=== PATIENT | male | born 1980 ===

== ENCOUNTER → 2018-10-01 | Outpatient (CLI) | payer BC ==
--- NOTE | 2018-10-01 17:22 | CONS ---
CONSULTATION REASON FOR CONSULTATION: Consultation for sleep apnea. A 37-year-old male patient, works for [employer]. Lives in [place] and works in [employer]. The patient lives close to his work environment during the weekdays and he gets back home on weekends. He has been diagnosed having obstructive sleep apnea many years back through a sleep study that was done in [place]. Specifically the sleep study was done in 2011. I do not have any documentation as far as the diagnosis or severity. The patient was given CPAP which he uses for short periods of time and then after he ran out of his supplies, he quit the treatment. He has maintained his own body weight. He is feeling a bit tired and sleepy and he is snoring and he quits breathing at night and he wakes up gasping for air and this occurs approximately once a week. He goes to bed around 9:30 pm, wakes up at 5:30 a.m. in the morning. 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 He claims that he is wide awake and alert. Has never been involved in a motor vehicle accident because of feeling drowsy or sleepy. Vanzant score is at 15. No history of insomnia. No nocturia. No grinding of the teeth. No restlessness in lower extremities. He was referred to me for a reevaluation. 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 PAST MEDICAL HISTORY: 1. Obstructive sleep apnea diagnosed back in 2011. Currently not receiving any treatment. 2. Hypertension. PAST SURGICAL HISTORY: Negative. DRUG ALLERGIES: Not known. OUTPATIENT MEDICATIONS ARE: Lisinopril. SOCIAL HISTORY: Nonsmoker. No history of alcohol. No history of IV drugs. FAMILY HISTORY: Mother is healthy. Father has hypertension. REVIEW OF SYSTEMS: 12-point review of system was done. Positive findings are mentioned in history of present illness. Weight has been stable. No sleep paralysis. No hallucinations. No cataplexy. No reported substance abuse. He drinks 2 cups of coffee during the day. No history of alcoholism. No history of any sudden episodes of muscle weakness or sleep paralysis. No anxiety. No claustrophobia. No depression. No irritability. He does not wake up with a dry mouth. No palpitation. No heartburn. No sweating. No sleep talking or sleep walking. No restlessness in his lower extremities. No nighttime shortness of breath chest pain. No heartburn. PHYSICAL EXAMINATION: BP is 112/69, pulse 90, respirations 16, temperature 97.8. Saturation 96% on room air. Height is 5 feet 11 inches, weight is 250, BMI is 34.8, neck size is 17 and half. Vanzant score of 15. GENERAL APPEARANCE: Calm and comfortable. Head is atraumatic, normocephalic. NECK: Supple. There is no JVD. No goiter or neck masses. Patient has bilateral tonsillar enlargement almost kissing tonsils. LUNGS: Clear to auscultation. HEART: Sounds regular rate and rhythm. Normal S1, S2. No S3, no murmurs. ABDOMEN: Soft, nontender. No organomegaly. EXTREMITIES: No edema. No cyanosis or clubbing. Neurological: Awake and alert x3. There is no focal neurological deficits. PSYCHIATRIC: Negative for anxiety or depression. IMPRESSION: 1. Obstructive sleep apnea. Diagnosis established back in 2011 and the patient has been off treatment. The patient is coming in for reevaluation. 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 He does have some increased tiredness and sleepiness. His Vanzant score of 15. 2. Hypersomnia/fatigue, Vanzant score of 15. 3. Bilateral tonsillar enlargement. 4. Obesity with a BMI of 34.8. 5. History of hypertension. PLAN: 1. Encourage weight loss. 2. The patient will have re-investigation for obstructive sleep apnea. We will set up the patient for a home sleep study to assess the presence and severity of sleep apnea and decide on treatment accordingly. He has an older generation CPAP unit at home which he will bring during his next visit. We will assess our ability to use his old machine if the diagnosis of sleep apnea is confirmed. 3. Implement good sleep hygiene measures. 4. We will continue to follow. MMODL / IJN: [id number] /
== END ==
LOC: SLEEP 14:43
PROVIDERS: ATTEND Internal Medicine Critical Care Medicine
DX: G47.33 Obstructive sleep apnea (adult) (pediatric) (principal); I10 Essential (primary) hypertension; Z79.899 Other long term (current) drug therapy; E66.9 Obesity, unspecified; J35.1 Hypertrophy of tonsils; Z68.34 Body mass index [BMI] 34.0-34.9, adult; Z99.89 Dependence on other enabling machines and devices
CPT/HCPCS: 99211

== ENCOUNTER → 2018-12-17 | Outpatient (CLI) | payer BC ==
--- NOTE | 2018-12-17 20:14 | PN ---
PROGRESS NOTE Silvestre is 37 with a diagnosis of severe obstructive sleep apnea, AHI of 41, worse in a supine body position. The patient was offered an APAP. On today's evaluation, the patient is coming in for a compliancy check. He is very happy and extremely content with his CPAP response. He has been wearing his CPAP every night. Over the past one week he was on a job in [place], [place], and he forgot to take his machine with him; as such, his numbers are slightly off. Yet overall compliance data show that the patient has been averaging around 5.8 hours of CPAP use per night and his AHI while on treatment is down to 1.8. His average CPAP pressure is 13.8, while being in a minimum pressure of 5, maximum pressure of 20. He is using the F20 medium-sized full-face mask. He is happy with the current mask and is looking for alternatives. His Leburn score is currently down to 8. He feels great. No hypersomnia or sleepiness. He is able to drive long distances without having to fall asleep. REVIEW OF SYSTEMS: Fourteen-point review of systems was done. Positive findings are mentioned above in the history of present illness. No major hypersomnia or sleepiness on today's evaluation. PHYSICAL EXAMINATION: BP is 137/75, pulse 76, respirations 16, temperature 98.2. Weight is 247, saturation 96% on room air. GENERAL APPEARANCE: Calm, comfortable. Head is atraumatic, normocephalic. NECK: Supple. There is no JVD. No goiter or neck masses. LUNGS: Diminished; otherwise clear. HEART: Heart sounds are regular rate and rhythm. Normal S1, S2. No S3, S4. No murmurs. ABDOMEN: Soft, nontender. No organomegaly. EXTREMITIES: No edema. No cyanosis or clubbing. NEUROLOGIC: Alert and oriented x3. No focal neurological deficits. PSYCHIATRIC: Negative for anxiety or depression. Skin is negative for any wounds or ulceration. IMPRESSION: 1. Severe obstructive sleep apnea, apnea/hypopnea index of 41.9, worse in the supine body position. The patient is successfully treated. The patient is currently on APAP. 2. Hypersomnia, improved. Leburn score is down to 8. 3. Obesity. 4. Bilateral tonsillar enlargement. 5. Hypertension. PLAN: The patient has responded very nicely to APAP. He will continue APAP at the same setting. I offered the patient a DreamWear medium-sized [id number] full-face mask. This will be used as an alternative mask for the AirFit F20 medium-sized full-face mask. Encourage weight loss. His treatment has been successful. Compliance data was checked. The patient is meeting insurance guidelines. No issues for now. See me back in a year's time in followup, earlier if needed. MMODL / IJN: [id number] /
== END ==
LOC: SLEEP 16:26
PROVIDERS: ATTEND Internal Medicine Critical Care Medicine
DX: G47.33 Obstructive sleep apnea (adult) (pediatric) (principal); E66.9 Obesity, unspecified; I10 Essential (primary) hypertension; J35.1 Hypertrophy of tonsils; Z99.89 Dependence on other enabling machines and devices

== ENCOUNTER → 2020-10-26 | Outpatient (CLI) | payer BC ==
--- NOTE | 2020-10-26 14:49 | PN ---
PROGRESS NOTE Silvestre is coming in for a followup regarding his obstructive sleep apnea. He is currently 39. He is known to have severe SARAH with an AHI of 41 and currently is on APAP 5 and 20 cm of water. 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 Meanwhile, he is to improve his compliancy slightly. At times he is taking off his mask and is not wearing his CPAP machine. Based on a 30- day compliance, the patient has worn his machine 19 out of 30 days, and has achieved around more than 4 hours, 16 out of these 30 days. He is averaging around 5.9 hours on those days that he wears his CPAP. His average pressure delivered by the machine is 15.1. Leak is in order of 24 L/minutes. His AHI while on treatment is down to 1.4. His weight is up during the COVID times and he is up to 261 pounds. No hypersomnia or sleepiness when he wears his machine. He is using an AirFit F20 medium-sized full-face mask. No aerophagia. No major hypersomnia or sleepiness while on the treatment. No angina. No palpitations. No atrial fibrillation. No stroke. No other issues for now. He is not an alcohol drinker. REVIEW OF SYSTEMS: Fourteen-point review of system was done. Positive findings are positive for weight gain. Otherwise negative. His current Lakeside score is at 6. PHYSICAL EXAMINATION: VITAL SIGNS: BP is 140/82, pulse 80, respirations 16, temperature 96.7, weight is 261. Lakeside score is 6. Saturation 97% on room air. GENERAL APPEARANCE: Calm, comfortable. HEAD: Atraumatic, normocephalic. NECK: Supple. There is no JVD. No goiter or neck masses. LUNGS: Clear to auscultation. HEART: Heart sounds are regular rate and rhythm. Normal S1, S2. No S3, S4. No murmurs. ABDOMEN: Soft, nontender. No organomegaly. EXTREMITIES: No edema. No cyanosis or clubbing. NEUROLOGIC: Awake, alert, and there is no focal neurological deficits. PSYCHIATRIC: Negative for anxiety or depression. IMPRESSION: 1. Severe obstructive sleep apnea with an AHI of 42, currently on APAP with successful treatment. Compliance needs to be better however. 2. Hypersomnia, improved. Lakeside score is down to 6. 3. Obesity. 4. Bilateral tonsillar enlargement. 5. Hypertension. 6. Interval weight gain probably in the order of 14 pounds. PLAN: 1. Improve compliancy. 2. I offered the patient a crossvertiseWear medium-size full face mask which he liked. This is a full-face mask under the nose and the mask fit was improved and the patient was given another sample. He is using this in alternation with the AirFit F20 full- face mask. He needs to improve the number of hours of CPAP use and he needs to wear it every night. Encourage weight loss and see me back in a few years time in followup. Refills were given. We will continue to follow. MMODL / IJN: [id number] /
== END ==
LOC: SLEEP 13:16
PROVIDERS: ATTEND Internal Medicine Critical Care Medicine
DX: G47.33 Obstructive sleep apnea (adult) (pediatric) (principal); Z99.89 Dependence on other enabling machines and devices; E66.9 Obesity, unspecified; I10 Essential (primary) hypertension; J35.1 Hypertrophy of tonsils

== ENCOUNTER 2023-05-13 16:05 | Emergency (ER) | payer BC ==
[2023-05-13 16:18] VITALS: RESP 18
[2023-05-13] MEDS ORDERED: SODIUM CHLORIDE 0.9% 1,000 ML IV STA (16:31)
[2023-05-13] MEDS ORDERED: KETOROLAC 15 MG/ML 1 ML VIAL IVP STA (16:31)
--- NOTE | 2023-05-13 16:57 | ED ---
Abdominal Pain HPI - General Chief Complaint: Abdominal Pain Stated Complaint: lower abd pain Time Seen by Provider: 05/13/23 16:19 Source: patient Mode of arrival: ambulatory Limitations: no limitations - History of Present Illness Initial Comments: 6-year-old male presenting with chief complaint of left lower quadrant pain. Pain has been there for the last 3 days. Feels a cramping sensation. He admits to constipation. No diarrhea, hematochezia, melena. No fevers or chills. No nausea or vomiting. No dysuria, hematuria, flank pain. - Related Data Previous Rx's Medication Instructions Recorded Amoxic-Pot Clav 875-125Mg 1 tab PO Q12HR 10 Days #20 tab 05/13/23 [Augmentin 875-125] Allergies Allergy/AdvReac Type Severity Reaction Status Date / Time No Known Allergies Allergy Verified 05/13/23 16:17 Review of Systems ROS Statement: Those systems with pertinent positive or pertinent negative responses have been documented in the HPI. ROS Other: All systems not noted in ROS Statement are negative. Past Medical History Past Medical History: No Reported History History of Any Multi-Drug Resistant Organisms: None Reported Past Surgical History: Hernia Repair Past Psychological History: No Psychological Hx Reported Smoking Status: Light tobacco smoker Past Alcohol Use History: None Reported Past Drug Use History: Marijuana General Exam Limitations: no limitations General appearance: alert, in no apparent distress Head exam: Present: atraumatic, normocephalic, normal inspection Eye exam: Present: normal appearance, EOMI Neck exam: Present: normal inspection, full ROM Respiratory exam: Present: normal lung sounds bilaterally. Absent: respiratory distress, wheezes, rales, rhonchi, stridor Cardiovascular Exam: Present: regular rate, normal rhythm, normal heart sounds. Absent: systolic murmur, diastolic murmur, rubs, gallop, clicks GI/Abdominal exam: Present: soft, tenderness (LLQ), guarding. Absent: distended, rebound, rigid Neurological exam: Present: alert, oriented X3 Psychiatric exam: Present: normal affect, normal mood Skin exam: Present: warm, dry, intact, normal color. Absent: rash Course Vital Signs 05/13/23 05/13/23 16:13 19:30 Temperature 98.0 F 98.8 F Pulse Rate 91 76 Respiratory 18 18 Rate Blood Pressure 132/84 133/84 O2 Sat by Pulse 97 97 Oximetry Medical Decision Making - Medical Decision Making Was pt. sent in by a medical professional or institution (LATASHA Martin, SHAKER REPAIRER, urgent care, hospital, or long-term...) When possible be specific @ -No Did you speak to anyone other than the patient for history (EMS, parent, family, police, friend...)? What history was obtained from this source @ -No Did you review nursing and triage notes (agree or disagree)? Why? @ -I reviewed and agree with nursing and triage notes Were old charts reviewed (outside hosp., previous admission, EMS record, old EKG, old radiological studies, urgent care reports/EKG's, long-term records)? Report findings @ -No old charts were reviewed Differential Diagnosis (chest pain, altered mental status, abdominal pain women, abdominal pain men, vaginal bleeding, weakness, fever, dyspnea, syncope, headache, dizziness, GI bleed, back pain, seizure, CVA, palpatations, mental health, musculoskeletal)? @ -MDM Differential Abdominal Pain Men: Appendicitis, cholecystitis, diverticulosis, ischemic bowel, pancreatitis, hepatitis, UTI, gastroenteritis, AAA, incarcerated hernia, bowel obstruction, constipation, inflammatory bowel, hepatitis, peptic ulcer disease, splenic infa rction, perforated viscus, testicular torsion... This is not meant to be an all- inclusive list EKG interpreted by me (3pts min.). @ -As above X-rays interpreted by me (1pt min.). @ -None done CT interpreted by me (1pt min.). @ -Acute uncomplicated descending colon/sigmoid colon diverticulitis U/S interpreted by me (1pt. min.). @ -None done What testing was considered but not performed or refused? (CT, X-rays, U/S, labs)? Why? @ -None What meds were considered but not given or refused? Why? @ -None Did you discuss the management of the patient with other professionals (professionals i.e. LATASHA Martin, SHAKER REPAIRER, lab, RT, psych nurse, family welfare social work professor, sales support assistant, te acher, legal compliance officer, patient case coordinator)? Give summary @ -No Was smoking cessation discussed for >3mins.? @ -No Was critical care preformed (if so, how long)? @ -No Were there social determinants of health that impacted care today? How? (Homelessness, low income, unemployed, alcoholism, drug addiction, transportation, low edu. Level, literacy, decrease access to med. care, half-way, rehab)? @ -No Was there de-escalation of care discussed even if they declined (Discuss DNR or withdrawal of care, Hospice)? DNR status @ -No What co-morbidities impacted this encounter? (DM, HTN, Smoking, COPD, CAD, Cancer, CVA, ARF, Chemo, Hep., AIDS, mental health diagnosis, sleep apnea, morbid obesity)? @ -None Was patient admitted / discharged? Hospital course, mention meds given and rou te, prescriptions, significant lab abnormalities, going to OR and other pertinent info. @ -42-year-old male presenting with chief complaint of left lower quadrant pain present since Sunday. Admits to constipation. On physical exam there is tenderness with guarding in the left lower quadrant. WBC 11.5. CT is positive for diverticulitis. Patient will be treated with Augmentin. Follow-up with PCP. Report back to ER with any new or worsening symptoms. Discussed return parameters and answered all questions. Patient conveyed verbal understanding and agreed to the plan. I discussed this case in detail with my attending Dr. Kramer Undiagnosed new problem with uncertain prognosis? @ -No Drug Therapy requiring intensive monitoring for toxicity (Heparin, Nitro, Insulin, Cardizem)? @ -No Were any procedures done? @ -No Diagnosis/symptom? @ -Diverticulitis Acute, or Chronic, or Acute on Chronic? @ -Acute Uncomplicated (without systemic symptoms) or Complicated (systemic symptoms)? @ -Uncomplicated Side effects of treatment? @ -No Exacerbation, Progression, or Severe Exacerbation? @ -No Poses a threat to life or bodily function? How? (Chest pain, USA, MO, pneumonia, PE, COPD, DKA, ARF, appy, cholecystitis, CVA, Diverticulitis, Homicidal, Suicidal, threat to staff... and all critical care pts) @ -Low likelihood - Lab Data Result diagrams: 05/13/23 16:40 05/13/23 16:40 Lab Results 05/13/23 05/13/23 05/13/23 Range/Units 16:40 16:40 16:40 WBC 11.5 H (3.8-10.6) k/uL RBC 5.08 (4.30-5.90) m/uL Hgb 15.7 (13.0-17.5) gm/dL Hct 45.0 (39.0-53.0) % MCV 88.6 (80.0-100.0) fL MCH 30.9 (25.0-35.0) pg MCHC 34.9 (31.0-37.0) g/dL RDW 12.2 (11.5-15.5) % Plt Count 229 (150-450) k/uL MPV 8.2 Neutrophils % 76 % Lymphocytes % 17 % Monocytes % 5 % Eosinophils % 1 % Basophils % 0 % Neutrophils # 8.7 H (1.3-7.7) k/uL Lymphocytes # 1.9 (1.0-4.8) k/uL Monocytes # 0.6 (0-1.0) k/uL Eosinophils # 0.1 (0-0.7) k/uL Basophils # 0.0 (0-0.2) k/uL Sodium 135 L (137-145) mmol/L Potassium 4.0 (3.5-5.1) mmol/L Chloride 100 (98-107) mmol/L Carbon Dioxide 23 (22-30) mmol/L Anion Gap 12 mmol/L BUN 21 H (9-20) mg/dL Creatinine 0.72 (0.66-1.25) mg/dL Est GFR (CKD-EPI)AfAm >90 (>60 ml/min/1.73 sqM) Est GFR (CKD-EPI)NonAf >90 (>60 ml/min/1.73 sqM) Glucose 92 (74-99) mg/dL Plasma Lactic Acid Prabhakar (0.7-2.0) mmol/L Calcium 9.3 (8.4-10.2) mg/dL Total Bilirubin 1.2 (0.2-1.3) mg/dL AST 24 (17-59) U/L ALT 45 (4-49) U/L Alkaline Phosphatase 62 (38-126) U/L Total Protein 7.6 (6.3-8.2) g/dL Albumin 4.4 (3.5-5.0) g/dL Amylase 105 (30-110) U/L Lipase 224 (23-300) U/L Urine Color Yellow Urine Appearance Clear (Clear) Urine pH 6.0 (5.0-8.0) Ur Specific [place] 1.029 (1.001-1.035) Urine Protein Trace H (Negative) Urine Glucose (UA) Negative (Negative) Urine Ketones Trace H (Negative) Urine Blood Negative (Negative) Urine Nitrite Negative (Negative) Urine Bilirubin 1+ H (Negative) Urine Urobilinogen 8.0 (<2.0) mg/dL Ur Leukocyte Esterase Negative (Negative) 05/13/23 Range/Units 16:40 WBC (3.8-10.6) k/uL RBC (4.30-5.90) m/uL Hgb (13.0-17.5) gm/dL Hct (39.0-53.0) % MCV (80.0-100.0) fL MCH (25.0-35.0) pg MCHC (31.0-37.0) g/dL RDW (11.5-15.5) % Plt Count (150-450) k/uL MPV Neutrophils % % Lymphocytes % % Monocytes % % Eosinophils % % Basophils % % Neutrophils # (1.3-7.7) k/uL Lymphocytes # (1.0-4.8) k/uL Monocytes # (0-1.0) k/uL Eosinophils # (0-0.7) k/uL Basophils # (0-0.2) k/uL Sodium (137-145) mmol/L Potassium (3.5-5.1) mmol/L Chloride (98-107) mmol/L Carbon Dioxide (22-30) mmol/L Anion Gap mmol/L BUN (9-20) mg/dL Creatinine (0.66-1.25) mg/dL Est GFR (CKD-EPI)AfAm (>60 ml/min/1.73 sqM) Est GFR (CKD-EPI)NonAf (>60 ml/min/1.73 sqM) Glucose (74-99) mg/dL Plasma Lactic Acid Prabhakar 0.8 (0.7-2.0) mmol/L Calcium (8.4-10.2) mg/dL Total Bilirubin (0.2-1.3) mg/dL AST (17-59) U/L ALT (4-49) U/L Alkaline Phosphatase (38-126) U/L Total Protein (6.3-8.2) g/dL Albumin (3.5-5.0) g/dL Amylase (30-110) U/L Lipase (23-300) U/L Urine Color Urine Appearance (Clear) Urine pH (5.0-8.0) Ur Specific [place] (1.001-1.035) Urine Protein (Negative) Urine Glucose (UA) (Negative) Urine Ketones (Negative) Urine Blood (Negative) Urine Nitrite (Negative) Urine Bilirubin (Negative) Urine Urobilinogen (<2.0) mg/dL Ur Leukocyte Esterase (Negative) Disposition Clinical Impression: Diverticulitis Disposition: HOME SELF-CARE Condition: Good Instructions (If sedation given, give patient instructions): Diverticulitis (ED), Diverticulitis Diet (ED) Additional Instructions: Follow-up with PCP. Report back to ER with any new or worsening symptoms. Take medication as prescribed. Prescriptions: Amoxic-Pot Clav 875-125Mg [Augmentin 875-125] 1 tab PO Q12HR 10 Days #20 tab Is patient prescribed a controlled substance at d/c from ED?: No Referrals: None,Stated [Primary Care Provider] - 1-2 days Time of Disposition: 18:59
[2023-05-13 17:02] LABS: Appearance,Urine Clear (Clear); Basophils % (A) 0 %; Bilirubin,Urine 1+ (Negative); Blood,Urine Negative (Negative); Color,Urine Yellow; Eosinophils # (A) 0.1 k/uL (0-0.7); Eosinophils % (A) 1 %; Glucose,Urine (UA) Negative (Negative); HGB 15.7 gm/dL (13.0-17.5); Ketones,Urine Trace (Negative); Leukocyte Esterase,Urine Negative (Negative); Lymphocytes # (A) 1.9 k/uL (1.0-4.8); Lymphocytes % (A) 17 %; MCH 30.9 pg (25.0-35.0); MCHC 34.9 g/dL (31.0-37.0); MCV 88.6 fL (80.0-100.0); Mean Platelet Volume 8.2; Monocytes # (A) 0.6 k/uL (0-1.0); Monocytes % (A) 5 %; Neutrophils # (A) 8.7 k/uL (1.3-7.7); Neutrophils % (A) 76 %; Nitrite,Urine Negative (Negative); Platelet Count 229 k/uL (150-450); Protein,Urine Trace (Negative); RBC 5.08 m/uL (4.30-5.90); RDW 12.2 % (11.5-15.5); Specific Gravity,Urine 1.029 (1.001-1.035); WBC 11.5 k/uL (3.8-10.6)
[2023-05-13 17:13] LABS: ALT 45 U/L (4-49); AST 24 U/L (17-59); African American GFR (CKD) >90 (>60 ml/min/1.73 sqM); Albumin 4.4 g/dL (3.5-5.0); Alkaline Phosphatase 62 U/L (38-126); Amylase 105 U/L (30-110); Anion Gap 12 mmol/L; Blood Urea Nitrogen 21 mg/dL (9-20); Calcium 9.3 mg/dL (8.4-10.2); Carbon Dioxide 23 mmol/L (22-30); Chloride 100 mmol/L (98-107); Glucose 92 mg/dL (74-99); Lipase 224 U/L (23-300); Non-African American GFR(CKD) >90 (>60 ml/min/1.73 sqM); Sodium 135 mmol/L (137-145); Total Bilirubin 1.2 mg/dL (0.2-1.3); Total Protein 7.6 g/dL (6.3-8.2)
--- NOTE | 2023-05-13 18:28 | CT ---
EXAMINATION TYPE: CT abdomen pelvis w con CT DLP: 1456.7 mGycm, Automated exposure control for dose reduction was used. DATE OF EXAM: 05/13/2023 6:11 PM COMPARISON: None CLINICAL INDICATION:Male, 42 years old with history of LLQ abdominal pain; LLQ abdominal pain TECHNIQUE: Axial CT of the abdomen and pelvis. Sagittal and coronal reformats were created on a [employer] workstation. Contrast used:100 mL of Isovue 370 with IV Contrast, (none if empty) Oral contrast used: without Oral Contrast (none if empty) FINDINGS: LOWER CHEST: Unremarkable ABDOMEN LIVER: Unremarkable GALLBLADDER AND BILE DUCTS: Unremarkable. PANCREAS: Unremarkable. SPLEEN: Unremarkable. ADRENAL GLANDS: Unremarkable. KIDNEYS AND URETERS: No evidence of hydronephrosis or renal calculus. The ureters are unremarkable. PELVIS BLADDER: Unremarkable REPRODUCTIVE: Unremarkable. ABDOMEN & PELVIS STOMACH AND BOWEL: There are colonic diverticula present, one of which in the left lower quadrant has adjacent fat stranding changes. No organizing fluid collection or evidence of pneumoperitoneum. No e vidence of bowel obstruction. The appendix is normal. PERITONEUM/RETROPERITONEUM: No evidence of pneumoperitoneum or free fluid. VASCULATURE: No evidence of aortic aneurysm. MUSCULOSKELETAL: No acute osseous abnormalities LYMPH NODES: No gross evidence for lymphadenopathy. SOFT TISSUE/ABDOMINAL WALL: Unremarkable IMPRESSION: Acute uncomplicated descending colon/sigmoid colon diverticulitis.
[2023-05-13] MEDS ORDERED: AMOXIC-POT CLAV 875-125MG 1 EACH TAB PO STA (18:56)
[2023-05-13] MEDS ORDERED: AMOXIC-POT CLAV 875MG STARTER PACK 2 TAB BTL PO STA (18:57)
[2023-05-13 19:32] VITALS: BP 133/84; PULSE 76; TEMP 98.8
== END 2023-05-13 19:32 | disposition home or self-care (01) ==
LOC: EC 16:05
DX: K57.32 Diverticulitis of large intestine without perforation or abscess without bleeding (principal); F17.200 Nicotine dependence, unspecified, uncomplicated; F12.90 Cannabis use, unspecified, uncomplicated
CPT/HCPCS: 36415; 80053; 82150; 83605; 83690; 85025; 81003; 74177; 99284; 96374; 96361; J1885; Q9967